=== PATIENT | male | born 1985 | race Caucasian/White ===

== ENCOUNTER 2018-12-14 15:56 | Emergency (ER) | payer OTHER ==
[~2018-12-14] VITALS: Ht 167.6 cm; Wt 83.2 kg
[2018-12-14] MEDS ORDERED: ONDANSETRON 4MG/2ML VIAL (J2405) IV ONE (17:00)
[2018-12-14] MEDS ORDERED: KETOROLAC 30 MG/ML VIAL (J1885) IV ONE (17:00)
[2018-12-14 18:05] LABS: BASO % 0.4 % (0.0-1.0); EOS % 0.3 % (0.0-3.0); HEMATOCRIT 43.5 % (42.0-52.0); HEMOGLOBIN 14.9 g/dl (13.5-17.5); LYMPH # 1.1 10^3/uL (1.5-4.5); LYMPH % 10.3 % (24.0-44.0); MEAN CORPUSCULAR HEMOGLOBIN 30.3 pg (27.0-33.0); MEAN CORPUSCULAR HGB CONC 34.3 g/dl (32.0-36.5); MEAN CORPUSCULAR VOLUME 88.4 fl (80.0-96.0); MONO # 0.5 10^3/uL (0.0-0.8); MONO % 4.2 % (0.0-5.0); NEUTROPHILS # 9.1 10^3/uL (1.8-7.7); NEUTROPHILS % 84.2 % (36.0-66.0); PLATELET COUNT, AUTOMATED 207 10^3/uL (150-450); RED BLOOD COUNT 4.92 10^6/uL (4.30-6.10); WHITE BLOOD COUNT 10.8 10^3/uL (4.0-10.0)
--- NOTE | 2018-12-14 18:27 | REP ---
CT ABDOMEN AND PELVIS WITHOUT CONTRAST: HISTORY: Left renal colic. Calcifications are present in the kidneys consistent with nephrolithiasis. There is mild dilatation of the left renal collecting system and ureter secondary to a 3 mm calculus present in the left ureter at the level of the L4-5 intervertebral disc. The liver, gallbladder, pancreas, spleen and adrenal glands are normal in appearance. There is no mass, adenopathy or free fluid. The visualized lungs are clear. The prostate gland and urinary bladder are normal in appearance. The bony structure is intact. There is no disc bulge or herniation. IMPRESSION: Bilateral nephrolithiasis. There is mild dilatation of the left renal collecting system and ureter secondary to a 3 mm calculus present in the left ureter at the level of the L4-5 intervertebral disc. Electronically Signed by Hipolito Damon MD 12/14/2018 06:31 P
[2018-12-14 18:28] LABS: ALBUMIN 4.7 GM/DL (3.2-5.2); ALT/SGPT 43 U/L (12-78); BILIRUBIN,DIRECT 0.2 MG/DL (0.0-0.2); BILIRUBIN,TOTAL 0.8 MG/DL (0.2-1.0); BLOOD UREA NITROGEN 18 MG/DL (7-18); CALCIUM LEVEL 9.3 MG/DL (8.5-10.1); CARBON DIOXIDE LEVEL 26 MEQ/L (21-32); CHLORIDE LEVEL 105 MEQ/L (98-107); CREATININE FOR GFR 1.42 MG/DL (0.70-1.30); GLOMERULAR FILTRATION RATE > 60.0 (>60); GLUCOSE, FASTING 118 MG/DL (70-100); LIPASE 84 U/L (73-393); SODIUM LEVEL 140 MEQ/L (136-145); TOTAL PROTEIN 7.5 GM/DL (6.4-8.2)
[2018-12-14 19:27] VITALS: BP 125/74
[2018-12-14] MEDS ORDERED: ZOFR4TAB16 PO (19:29)
[2018-12-14] MEDS ORDERED: NORC1TAB7 PO (19:29)
[2018-12-14] MEDS ORDERED: FLOM0.4C39 PO (19:29)
== END 2018-12-14 19:42 | disposition home or self-care (01) ==
LOC: M ED 15:56
DX: N20.1 Calculus of ureter (principal); R11.2 Nausea with vomiting, unspecified
CPT/HCPCS: 74176; 80048; 80076; 81001; 83690; 85025; 96374; 96375; 99284; J1885; J2405